=== PATIENT | female | born 1965 | race Caucasian/White ===

== ENCOUNTER 2024-09-13 06:46 | Day surgery (SDC) | payer BC ==
[~2024-09-13 06:46] MED LIST: Sodium Chloride 0.9% 10 ML Syringe FLUSH PRN
[2024-09-13] MEDS ORDERED: Lidocaine 1% PF 2 ML SDV INJECT ONE (06:47)
[2024-09-13] MEDS ORDERED: Propofol 200 MG/20 ML SDV IV ONE (06:47)
[2024-09-13] MEDS: Lactated Ringers 1,000 ML IV SCH (07:28)
[2024-09-13 09:39] VITALS: BP 126/76; PULSE 67
== END 2024-09-13 09:25 | disposition home or self-care (01) ==
LOC: FB.SDS 06:46
PROVIDERS: ATTEND Surgery
DX: K52.832 Lymphocytic colitis (principal); Z88.2 Allergy status to sulfonamides; Z88.8 Allergy status to other drugs, medicaments and biological substances; Z79.899 Other long term (current) drug therapy; Z79.890 Hormone replacement therapy; Z91.018 Allergy to other foods
CPT/HCPCS: 00811; 88305; A9270-GY; J2003; J2704; J7120